=== PATIENT | female | born 1980 | race Caucasian/White ===

== ENCOUNTER 2017-10-18 19:25 | Emergency (ER) | payer OTHER ==
[2017-10-18 19:31] VITALS: RESP 16; TEMP 98.1
--- NOTE | 2017-10-18 20:03 | EDPHY ---
H & P Smoking Status: Never smoked Time Seen by Provider: 10/18/17 20:01 HPI/ROS: CHIEF COMPLAINT: Right 5th toe pain HISTORY OF PRESENT ILLNESS: 37-year-old female complaining of acute right 5th small toe pain after she accidentally stubbed this area this evening. Unable to bear weight secondary to pain. Notes that the 5th toe appears to be laterally displaced. PHYSICAL EXAM (Prior to examination, patient consented to physical exam, hands were washed and my usual and customary physical exam procedures followed) 1) GENERAL: Well-developed, well-nourished, alert and oriented. Appears to be in no acute distress. 2) HEAD: Normocephalic 3) HEENT: Pupils equal, round, reactive to light bilaterally. 4) LUNGS: Breathing comfortably. 5) MUSCULOSKELETAL: Tender to palpation right 5th toe. Slightly laterally subluxed proximal tibia and fibula nontender .5th MT nontender negative Coles test, compartments soft 6) SKIN: Intact no tenting no discoloration 7) VASCULAR: DP,PT pulses and cap refill present and brisk DIFFERENTIAL DIAGNOSIS: in no particular order including but not limited to fracture, sprain, compartment syndrome Procedure: Crutches indications for crutch use discussed with patient. Patient fitted for crutches by ER staff. Observed ambulating with crutches. I think the patient has the capacity to safely use crutches. Usual and customary crutch walking precautions provided Procedure: Splint A sudhir-tape splint and postop shoe Was applied by ER warehousing technician. After application of the splint I returned and re-examined the patient. The splint was adequately immobilizing the joint and distal to the splint the patient's circulation and sensation were intact. Patient shows no signs of compartment syndrome. Was given orthopedic precautions. (Fran Chamberlain) Constitutional: Initial Vital Signs Temperature (C) 36.7 C 10/18/17 19:28 Heart Rate 95 10/18/17 19:28 Respiratory Rate 16 18 19:28 Blood Pressure 101/75 10/18/17 19:28 O2 Sat (%) 96 10/18/17 19:28 O2 Delivery Mode Room Air Allergies/Adverse Reactions: No Known Allergies Allergy (Unverified 10/18/17 19:27) Home Medications: Medication Instructions Recorded None 01/19/13 Hydrocodone/APAP 5/325 [[place] 1 tab PO Q6 PRN #7 tab 10/18/17 5/325 (RX)] MDM/Departure - MDM Medications Given: Discontinued Medications Hydrocodone Bitart/Acetaminophen ([place] 5/325mg Prepack#6) 1 btl TAKEHOME EDNOW ONE Stop: 10/18/17 21:14 Last Admin: 10/18/17 21:17 Dose: 1 btl Ibuprofen (Motrin) 600 mg PO EDNOW ONE Stop: 10/18/17 20:08 Last Admin: 10/18/17 20:13 Dose: 600 mg ED Course/Re-evaluation: The patient was evaluated and managed by the Physician Mathematical Statistician. My co- signature indicates that I have reviewed this chart and I agree with the findings and plan of care as documented. I am the secondary supervising physician. (Yessy Paris) - Depart Disposition: Home, Routine, Self-Care Clinical Impression: Fracture of fifth toe, left, open Qualifiers: Encounter type: initial encounter Qualified Code(s): S92.502B - Displaced unspecified fracture of left lesser toe(s), initial encounter for open fracture Condition: Good Instructions: Hydrocodone/Acetaminophen (By mouth), Toe Fracture (ED) Additional Instructions: Return to the ER immediately if you experience discoloration, have worsening pain, numbness, tingling, or any other symptoms that concern you. If you received x-rays in the emergency department today, be advised, that ligamentous , tendon, muscular, and other non-bony injury cannot be fully ruled out. Try to keep your affected extremity elevated above the level of your chest, and keep cold packs on the affected area, for the next 48 hours. Prescriptions: Hydrocodone/APAP 5/325 [[place] 5/325 (RX)] 1 tab PO Q6 PRN #7 tab PRN Reason: Pain, Severe Referrals: Marcelo Sr MD [Medical Doctor] - 2-3 days, call for appt.
[2017-10-18] MEDS ORDERED: IBUPROFEN 600 MG TAB PO ONE (20:07)
[2017-10-18] MEDS ORDERED: HYDROCOD/APAP 5/325 PREPACK#6 BTL TAKEHOME ONE (21:13)
[2017-10-18 21:31] VITALS: BP 114/82; PULSE 86; O2SAT 95
== END 2017-10-18 21:27 | disposition home or self-care (01) ==
DX: S92.514A Nondisplaced fracture of proximal phalanx of right lesser toe(s), initial encounter for closed fracture (principal); W22.8XXA Striking against or struck by other objects, initial encounter